=== PATIENT | male | born 1985 | race Caucasian/White ===

== ENCOUNTER 2022-11-27 00:45 | Emergency (ER) | payer SELFPAY ==
[2022-11-27 01:01] VITALS: BP 135/84; PULSE 105; RESP 14; TEMP 36.9; O2SAT 98; BMI 31.4
--- NOTE | 2022-11-27 01:16 | HMH.EDGENADL ---
Discharge Plan Disposition Patient Disposition: Home, Self-Care Condition: Good Prescriptions Prescriptions: New amoxicillin-pot clavulanate 875-125 mg tablet 1 tab PO BID 7 Days Qty: 14 0RF Activity Restrictions/Add. Instructions Additional Instructions/Restrictions: Recommend calling around and trying to get into the nearest dentist. If you cannot get into a dentist, recommend looking into the [facility] walk-in clinic in [place]. Please take antibiotics as prescribed. Clinical Impressions Clinical Impression: Dental abscess Discharge ED Provider: Obinna Rodriguez General Adult HPI General Chief complaint: Dental/Oral Stated complaint: Toothache Time Seen by Provider: 11/27/22 00:56 Mode of Arrival: Family Vehicle Source of Information: Patient Limitations: No Limitations Description of Symptoms (Recalled from ER Triage Doc. by RN): 37 YO MALE PRESENTS WITH CC OF LEFT SIDE FACIAL SWELLING, LEFT LOWER JAW PAIN FROM ABSCESSED TOOTH History of Present Illness HPI narrative: 37-year-old male reportedly previously healthy presents with left-sided lower jaw pain and swelling for the last 3 days. He has been taking penicillin at home from a previous prescription without improvement. He reports that he has a fractured tooth which has been giving him trouble. He is new to the area and has been unable to see a dentist. Pain and swelling have been worsening prompting presentation to ED. Related Data Previous Rx's Medication Instructions Recorded amoxicillin 875 mg-potassium 1 tab PO BID 7 days #14 tabs 11/27/22 clavulanate 125 mg tablet Allergies Allergy/AdvReac Type Severity Reaction Status Date / Time No Known Allergies Allergy Verified 11/27/22 01:04 [facility] Disclaimer: The information contained in this section may have been updated after the patient was seen, as this information can be updated by other users. Social History Smoking Status: Current every day smoker alcohol intake: never current occupational status: other Travel in the last 8 weeks: None ROS Obtained: Yes All systems reviewed & no additional complaints except as documented Physical Exam General General appearance: alert and in no apparent distress Head Head exam: atraumatic and other (Mild left cheek swelling noted) Eye Eye exam: Present normal appearance, PERRL and EOMI ENT ENT exam: Present normal external ear exam and other (Posterior most left mandibular molar is fractured and necrotic appearing, periapical abscess noted adjacent. No trismus.) Neck Neck exam: Present normal inspection and full ROM Chest Chest inspection: Present normal inspection and symmetric chest wall rise; Absent tenderness Respiratory Respiratory exam: Present normal lung sounds bilaterally; Absent respiratory distress Cardiovascular Cardiovascular exam: Present regular rate and normal rhythm Abdominal Exam Abdominal exam: Present soft; Absent distention, tenderness or guarding Extremities Exam Extremities exam: Present normal inspection; Absent edema or joint swelling Back Exam Back exam: Present normal inspection; Absent tenderness Neurological Exam Neurological exam: Present alert and oriented X3; Absent motor sensory deficit Psychiatric Psychiatric exam: Present normal affect and normal mood Skin Skin exam: Present warm, dry and normal color Lymphatic Lymphatic Findings: no adenopathy Medical Decision Making Medical Records Medical records reviewed: Yes I reviewed the patient's medical records. Parish Inquiry Pt receiving controlled substance: No Parish was queried for this patient: No Vital Signs: 11/27/22 01:01 Temperature 98.5 F Temperature Source Oral Pulse Rate [Right Brachial] 105 H Respiratory Rate 14 Blood Pressure [Right Arm] 135/84 Blood Pressure Mean [Right Arm] 101 Blood Pressure Source [Right Arm] Automatic Cuff Blood Pressure Position [Right Arm] Sitting 02 Sat by Pulse Oximetry 98 O
[2022-11-27 01:24] VITALS: BP 135/84; PULSE 105; RESP 16; TEMP 36.6; O2SAT 99
== END 2022-11-27 01:26 | disposition home or self-care (01) ==
PROVIDERS: Emergency Provider Emergency Medicine
DX: R22.0 Localized swelling, mass and lump, head (principal); R68.84 Jaw pain; F17.200 Nicotine dependence, unspecified, uncomplicated; S02.5XXA Fracture of tooth (traumatic), initial encounter for closed fracture; X58.XXXA Exposure to other specified factors, initial encounter
CPT/HCPCS: 99283